=== PATIENT | female | born 1990 | race Two or more races ===

== ENCOUNTER 2023-08-15 01:55 | Emergency (ER) | payer MEDICAID, OTHER ==
[~2023-08-15] VITALS: Ht 165.1 cm; Wt 55.0 kg
[2023-08-15 02:15] VITALS: PULSE 87; RESP 12; O2SAT 100
[2023-08-15 03:33] VITALS: PULSE 99; RESP 13; O2SAT 99
[2023-08-15 04:39] LABS: Basophils # (auto) 0.1 10 ^3/uL (0-0.2); Basophils % (auto) 0.5 % (0.0-2.0); Eosinophils # (auto) 0.2 10 ^3/uL (0-0.8); Eosinophils % (auto) 1.8 % (0.0-7.0); Hemoglobin 11.6 g/dL (12.2-16.2); Lymphocytes # (auto) 3.6 10 ^3/uL (0.4-5.4); Lymphocytes % (auto) 36.1 % (10.0-50.0); Mean Corpuscular Hemoglobin 29.5 pg (28.0-32.0); Mean Corpuscular Hgb Conc. 33.1 g/dL (32.0-36.0); Mean Corpuscular Volume 88.9 fL (80.0-100.0); Monocytes # (auto) 0.5 10 ^3/uL (0-1.3); Monocytes % (auto) 5.4 % (0.0-12.0); Neutrophils # (auto) 5.5 10 ^3/uL (1.6-8.6); Neutrophils % (auto) 56.2 % (37.0-80.0); Red Blood Cells 3.94 10^6/uL (4.0-5.20); Red Cell Distribution Width 16.8 % (11.8-14.3); White Blood Cell 9.9 10^3/uL (4.4-10.8)
[2023-08-15 04:45] LABS: INR 0.97 (0.9-1.15); Partial Thromboplastin Time 31.9 SEC (24.5-34.5); Prothrombin Time 10.2 sec (9.3-11.8)
[2023-08-15 04:46] LABS: Alanine Aminotransferase 16 U/L (7-40); Albumin 4.2 g/dL (3.2-4.8); Alkaline Phosphatase 118 U/L (46-116); Anion Gap 6 (5-15); Aspartate Aminotransferase 27 U/L (13-40); Bilirubin, Total 0.3 mg/dL (0.2-1.0); Blood Alcohol < 3.0 mg/dL (<10); Blood Urea Nitrogen 6 mg/dL (9-23); Calcium 9.2 mg/dL (8.5-10.1); Carbon Dioxide 26 mmol/L (20-30); Chloride 107 mmol/L (98-107); Glucose 111 mg/dL (74-106); Sodium 139 mmol/L (136-145)
[2023-08-15] MEDS: SODIUM CHLORIDE 0.9% 1,000 ML IV ONE (04:55)
[2023-08-15] MEDS: HYDROcodone-ACET 5/325MG TAB PO ONE (07:52)
[2023-08-15 07:53] VITALS: TEMP 98.2
[2023-08-15] MEDS: LORazepam 2MG/ML-1ML VIAL IV ONE (07:53)
[2023-08-15 08:41] VITALS: PULSE 97; RESP 16; O2SAT 96
[2023-08-15 08:52] LABS: Urine Bacteria MOD /hpf (None Seen); Urine Blood Negative /uL (Negative); Urine Clarity HAZY (Clear); Urine Color Colorless (Yellow); Urine Mucus FEW (None Seen); Urine Protein, UAD Negative (Negative); Urine Specific Gravity 1.016 (1.001-1.035); Urine Urobilinogen Normal (Negative); Urine WBC 96 /hpf (0 - 5); Urine pH 7.5 (5.0-8.0)
[2023-08-15 09:04] LABS: Amphetamine Screen, Urine Pos (NEGATIVE); Barbiturate Scree,Urine Neg (NEGATIVE); Benzodiazephine Screen, Urine Neg (NEGATIVE); Cannabinoid Screen, Urine Pos (NEGATIVE); Cocaine Screen, Urine Neg (NEGATIVE); Opiate Scree,Urine Neg (NEGATIVE); Phencyclidine Screen, Urine Neg (NEGATIVE)
[2023-08-15] MEDS ORDERED: IBU600T PO (15:00)
[2023-08-15] MEDS ORDERED: NITR-87 PO (15:00)
[2023-08-15] MEDS: TETANUS-DIPTH-ACEL PERTUSSIS 0.5ML SYR Tdap IM ONE (15:32)
[2023-08-15 15:34] VITALS: BP 96/61; PULSE 85; RESP 14; O2SAT 95
== END 2023-08-15 17:00 | disposition home or self-care (01) ==
LOC: ER 01:55 → EDBD 01:55 → ER 17:00
DX: S90.812A Abrasion, left foot, initial encounter (principal); S90.811A Abrasion, right foot, initial encounter; N39.0 Urinary tract infection, site not specified; F15.10 Other stimulant abuse, uncomplicated; F12.10 Cannabis abuse, uncomplicated; R51.9 Headache, unspecified; M54.2 Cervicalgia; Z59.00 Homelessness unspecified; Z79.01 Long term (current) use of anticoagulants; Z32.02 Encounter for pregnancy test, result negative; V03.99XA Pedestrian with other conveyance injured in collision with car, pick-up truck or van, unspecified whether traffic or nontraffic accident, initial encounter; Y93.89 Activity, other specified; Y92.89 Other specified places as the place of occurrence of the external cause; Y99.8 Other external cause status
CPT/HCPCS: 36415; 70450; 71250; 72125; 74176; 80053; 80307; 80320; 81001; 81025; 85025; 85610; 85730; 90471; 90715; 96361; 96374; 99285; J2060; J7030